=== PATIENT | female | born 1990 | race Caucasian/White ===

== ENCOUNTER 2020-04-13 10:32 | Emergency (ER) | payer MEDICAID ==
[~2020-04-13] VITALS: Ht 162.6 cm; Wt 97.5 kg
[2020-04-13] MEDS ORDERED: KETOROLAC TROMETHAMINE 60 MG INJ IM ONE ×2 (10:45→10:54)
--- NOTE | 2020-04-13 10:54 | NUR ---
pt seen by Dr. Napoleon KEARNS. Given Toradol 60mg IM once. taken to CT scan
--- NOTE | 2020-04-13 11:26 | NUR ---
Patient discharged to home in stable condition. Written and verbal after care instructions given. Patient verbalizes understanding of instructions. Stressed follow up or return to ER for worsening s/s. educated pt on zofran & percocet prescription. walks independtly in steady gait.
[2020-04-13 11:27] VITALS: BP 129/90
== END 2020-04-13 11:28 | disposition home or self-care (01) ==
LOC: ER 10:33
DX: S06.0X0A Concussion without loss of consciousness, initial encounter (principal); S16.1XXA Strain of muscle, fascia and tendon at neck level, initial encounter; V43.52XA Car driver injured in collision with other type car in traffic accident, initial encounter; Y92.410 Unspecified street and highway as the place of occurrence of the external cause; Z88.0 Allergy status to penicillin
CPT/HCPCS: 70450; 72125; 96372; 99285; J1885; A4663

== ENCOUNTER 2021-04-05 13:59 | Emergency (ER) | payer MEDICAID, OTHER ==
[~2021-04-05] VITALS: Ht 162.6 cm; Wt 97.5 kg
--- NOTE | 2021-04-05 15:42 | NUR ---
Pt awaiting results of HCG lab and then will have radiology studies done. Pt aware. Pt in no acute distress at this time.
[2021-04-05 16:01] LABS: *URINE HCG, QUAL NEGATIVE (NEGATIVE)
--- NOTE | 2021-04-05 16:21 | NUR ---
Pt taken for CT scan via gurney by melissa in stable condition.
[2021-04-05] MEDS ORDERED: HYDROCODONE/APAP 5-325MG TABLET PO ONE (17:45)
[2021-04-05] MEDS ORDERED: ACETAMINOPHEN 325 MG TABLET PO ONE (18:00)
[2021-04-05] MEDS ORDERED: ACETAMINOPHEN 325 MG TABLET ONE (18:05)
[2021-04-05 18:10] VITALS: BP 102/42
== END 2021-04-05 18:11 | disposition home or self-care (01) ==
LOC: ER 14:22
DX: S16.1XXA Strain of muscle, fascia and tendon at neck level, initial encounter (principal); S09.90XA Unspecified injury of head, initial encounter; V43.52XA Car driver injured in collision with other type car in traffic accident, initial encounter; Y92.415 Exit ramp or entrance ramp of street or highway as the place of occurrence of the external cause; M54.50 Low back pain, unspecified
CPT/HCPCS: 70450; 72125; 72131; 84703; A4663

== ENCOUNTER 2023-02-15 11:10 | Emergency (ER) | payer OTHER ==
[~2023-02-15] VITALS: Ht 162.6 cm; Wt 97.5 kg
[2023-02-15 11:16] VITALS: O2SAT 97
[2023-02-15] MEDS ORDERED: AZIT250T PO (11:53)
[2023-02-15] MEDS ORDERED: PRED50TA PO (13:37)
[2023-02-15] MEDS ORDERED: AZIT500T PO (13:37)
== END 2023-02-15 13:53 | disposition home or self-care (01) ==
LOC: ER 11:10
DX: J18.9 Pneumonia, unspecified organism (principal); R07.89 Other chest pain; Z88.0 Allergy status to penicillin; Z79.2 Long term (current) use of antibiotics; Z79.899 Other long term (current) drug therapy; Z20.822 Contact with and (suspected) exposure to COVID-19
CPT/HCPCS: 71045